=== PATIENT | male | born 1940 | race Caucasian/White ===

== ENCOUNTER 2016-12-16 07:44 | Observation (INO) | payer MEDICARE, BC ==
[2016-12-12 17:36] LABS: BASOPHILS 0.2 %; BASOPHILS ABSOLUTE 0.01 10/3/uL (0.0-0.16); EOSINOPHILS 1.7 %; EOSINOPHILS ABSOLUTE 0.11 10/3/uL (0.0-0.53); HEMATOCRIT 38.7 % (40.0-51.0); IMMATURE GRANULOCYTES 0.3 %; IMMATURE GRANULOCYTES ABSOLUTE 0.02 10/3/uL (0.0-0.11); LYMPHOCYTES 22.3 %; LYMPHOCYTES ABSOLUTE 1.41 10/3/uL (0.67-4.30); MANUAL DIFF NO %; MEAN CORPUS HGB CONC 33.6 g/dL (32.0-36.0); MEAN CORPUSCULAR HEMOGLOB 32.5 pg (26.0-34.0); MEAN CORPUSCULAR VOLUME 96.8 fL (80-100); MEAN PLATELET VOLUME 8.9 fL (9.2-13.0); MONOCYTES 10.1 %; MONOCYTES ABSOLUTE 0.64 10/3/uL (0.21-1.20); NEUTROPHILS 65.4 %; NEUTROPHILS ABSOLUTE 4.14 10/3/uL (2.02-8.40); PLATELET COUNT 295 10/3/uL (150-400); RBC DISTRIBUTION WIDTH 14.6 % (12.0-16.0); WHITE BLOOD CELLS 6.3 10/3/uL (4.5-10.5)
[2016-12-12 17:45] LABS: BUN (BLOOD UREA NITROGEN) 19 MG/DL (6-23); CALCIUM, SERUM 8.5 MG/DL (8.5-10.4); CHLORIDE, SERUM 109 MMOL/L (96-112); CO2 (CARBON DIOXIDE) 28 MMOL/L (24-34); CREATININE 1.05 MG/DL (0.70-1.30); GFR AFRICAN AMERICAN 81 ML/MIN (>=60); GFR NON AFRICAN AMERICAN 70 ML/MIN (>=60); GLUCOSE, SERUM 109 MG/DL (60-99)
[2016-12-12 17:46] LABS: SODIUM, SERUM 146 MMOL/L (135-148)
--- NOTE | ~2016-12-16 | OP ---
Record Of Operation [facility] [address] [place]. [address] NAME: PEE MA : 42 STATUS : ADM IN PAT#: [id number] AGE: 76 ADM/REG DATE : 12/16/16 MR#: [id number] REPORT SERV DATE: 12/16/16 DICTATED BY: Nell GUERRA DATE: 12/16/16 REPORT STATUS : Draft TRANSCRIBED BY: MODL DATE: 12/16/16 DATE OF PROCEDURE: 12/16/2016 PREOPERATIVE DIAGNOSIS: Benign prostatic hyperplasia with urinary retention. POSTOPERATIVE DIAGNOSIS: Benign prostatic hyperplasia with urinary retention. PROCEDURE: Cystoscopy, transurethral resection of the prostate. SURGEON: Nell Guerra M.D. ANESTHESIA: General. COMPLICATIONS: None. DRAINS: A 24-[place] three-way Maldonado catheter. BRIEF HISTORY: Mr. Ma is a 76-year-old white male with recent voiding dysfunction culminated in retention. He has had a catheter for about a week and after a reasonable workup, he decided proceed with TURP. The risks and benefits were as noted in his admission note. There were no unanswered questions. DESCRIPTION OF PROCEDURE: Under excellent general anesthesia, the patient was prepped and draped in a standard lithotomy position. It was noted that the patient has a subcoronal hypospadias with no evidence of stricture. Cystoscopy was performed with 30- and 70-degree lens, revealed normal anterior urethra. The posterior urethra showed trilobar BPH with a slightly elevated median bar. The orifices were lateral, but well back from the bladder neck at least in the midline. There was mild trabeculation throughout and a diverticulum on the right side about 15 mL in volume. No tumors were noted. I inserted the 28-[place] Storz resectoscope and began a circumferential resection, first resecting the left side and then the right side, and then the anterior tissue down to the apex. Orifices were noted to be normal and preserved as was the sphincter. There were no detected venous sinuses entered. Bleeding was well controlled, chips were removed with the Ellik evacuator, and I inserted a 24-[place] three-way Maldonado catheter with 40 mL of sterile water in the balloon. The patient will be taken to the recovery room and watched overnight for bleeding. I plan to send him home with his catheter until next week, although he has been fairly intolerant of his catheter previously in and may want a voiding trial sooner. I think it would be best, however, due to his thin bladder neck. BRUNO/ROBERTO Nell Guerra M.D. Record Of [address] [place] [address] NAME: PEE MA : 42 STATUS : ADM IN PAT#: [id number] AGE: 76 ADM/REG DATE : 12/16/16 MR#: [id number] REPORT SERV DATE: 12/16/16 DICTATED BY: Nell GUERRA DATE: 12/16/16 REPORT STATUS : Draft TRANSCRIBED BY: ROBERTO DATE: 12/16/16 / [id number] CC: Tiffanie Patton Dr.
--- NOTE | ~2016-12-16 | HP ---
History And Physical [id number] [place]. [address] NAME: PEE MA : 42 STATUS : ADM IN PAT#: [id number] AGE: 76 ADM/REG DATE : 12/16/16 MR#: [id number] REPORT SERV DATE: 12/16/16 DICTATED BY: Nell GUERRA DATE: 12/16/16 REPORT STATUS : Draft TRANSCRIBED BY: MODL DATE: 12/16/16 DATE OF ADMISSION: 12/16/2016 CHIEF COMPLAINT: Postop TURP. HISTORY OF PRESENT ILLNESS: Mr. Ma is a 76-year-old white male, seen recently for a voiding dysfunction, which culminated in acute urinary retention. He has had a catheter for about a week. His prostate measured 39 mL by ultrasound and lateral lobe obstruction. We discussed management options. He had previously been on alpha blockade and was anxious to proceed with operative intervention. We discussed the options of laser, TURP, and TUMT. We decided to proceed with TURP. The risks of bleeding, infection, anesthesia, injury to adjacent organs, impotency, retrograde ejaculation, etc., were all discussed. We also discussed the possibility of a neurogenic bladder and that he may not be able to void on his own. There were no unanswered questions. PAST MEDICAL HISTORY: BPH, urolithiasis, arthritis, fibromyalgia, skin cancer, and cardiac dysrhythmia. PAST SURGICAL HISTORY: Stone extraction, tonsillectomy, appendectomy, carpal tunnel repair, left total knee, and cataract extraction. HOME MEDICATIONS: Amiodarone, dabigatran, gabapentin, levothyroxine, Myrbetriq, Prilosec, Percocet, pravastatin, promethazine, tamsulosin, and zolpidem. ALLERGIES: PENICILLINS AND DOXYCYCLINE CAUSE RASHES AND CLARITHROMYCIN CAUSES SHORTNESS OF BREATH. FAMILY HISTORY: Positive for kidney stones. SOCIAL HISTORY: The patient denies use of alcohol or tobacco. He has stopped smoking 40 years ago. REVIEW OF SYSTEMS: Negative except as noted above. PHYSICAL EXAMINATION: GENERAL: A 76-year-old white male, alert and oriented x3. VITAL SIGNS: Afebrile with normal vital signs. No respiratory distress. CHEST: Clear. HEART: Regular rate and rhythm. ABDOMEN: Nontender, nondistended. Indwelling Maldonado catheter draining clear urine. No peripheral edema noted. PERTINENT LABORATORY: Creatinine 1.05. Hemoglobin 13.0. IMPRESSION: Benign prostatic hyperplasia with urinary retention status post transurethral History And Physical [address] [address] NAME: PEE MA : 44 STATUS : ADM IN PAT#: [id number] AGE: 76 ADM/REG DATE : 12/16/16 MR#: [id number] REPORT SERV DATE: 12/16/16 DICTATED BY: Nell GUERRA DATE: 12/16/16 REPORT STATUS : Draft TRANSCRIBED BY: ROBERTO DATE: 12/16/16 resection of the prostate. PLAN: 1. We will admit overnight for bleeding. 2. Plan discharge tomorrow likely with a catheter for several days to allow appropriate healing. BRUNO/ROBERTO Nell Guerra M.D. / [id number] CC: Nell Guerra M.D.
[~2016-12-16 07:44] MED LIST: AMB10 PO; ATV.5 PO; FLOMAX4 PO; GLUCCHONDR PO; LEVOTHROID25 MCG PO; MEPERITAB50 MG PO; MYRBETRIQ50 MG PO; NAP500 PO; NEUR300 PO; PACERONE200 MG PO; PERCOCET 10/3251 TAB PO; PR25 PO; PRADAXA150 MG PO; PRAVACHOL40 MG PO; PRILO PO
[2016-12-16 11:43] LABS: HEMATOCRIT 35.8 % (40.0-51.0); HEMOGLOBIN 12.5 g/dL (13.6-17.8)
[2016-12-16 11:56] LABS: CHLORIDE, SERUM 107 MMOL/L (96-112); CO2 (CARBON DIOXIDE) 28 MMOL/L (24-34); CREATININE 0.93 MG/DL (0.70-1.30); GFR AFRICAN AMERICAN 93 ML/MIN (>=60); GFR NON AFRICAN AMERICAN 81 ML/MIN (>=60); GLUCOSE, SERUM 91 MG/DL (60-99); POTASSIUM, SERUM 3.7 MMOL/L (3.5-5.3); SODIUM, SERUM 144 MMOL/L (135-148)
[2016-12-16 11:57] LABS: BUN (BLOOD UREA NITROGEN) 14 MG/DL (6-23)
[2016-12-17 07:20] LABS: HEMATOCRIT 36.3 % (40.0-51.0); HEMOGLOBIN 12.3 g/dL (13.6-17.8)
[2016-12-17 07:45] LABS: BUN (BLOOD UREA NITROGEN) 12 MG/DL (6-23); CALCIUM, SERUM 8.2 MG/DL (8.5-10.4); CHLORIDE, SERUM 107 MMOL/L (96-112); CO2 (CARBON DIOXIDE) 28 MMOL/L (24-34); CREATININE 1.17 MG/DL (0.70-1.30); GFR AFRICAN AMERICAN 71 ML/MIN (>=60); GFR NON AFRICAN AMERICAN 61 ML/MIN (>=60); GLUCOSE, SERUM 98 MG/DL (60-99); POTASSIUM, SERUM 4.6 MMOL/L (3.5-5.3); SODIUM, SERUM 142 MMOL/L (135-148)
[2016-12-17] MEDS ORDERED: MYRBETRIQ25 MG PO (08:50)
== END 2016-12-17 12:36 | disposition home or self-care (01) ==
LOC: SDC/OF 07:44 → PACU 11:21 → 4SO 12:31
PROC: 0VT08ZZ Resection of Prostate, Via Natural or Artificial Opening Endoscopic (ICD-10-PCS; principal; 2016-12-16 10:00)
DX: N41.0 Acute prostatitis (principal); N41.1 Chronic prostatitis; N40.1 Benign prostatic hyperplasia with lower urinary tract symptoms; R33.8 Other retention of urine; R39.12 Poor urinary stream; I48.91 Unspecified atrial fibrillation; E03.9 Hypothyroidism, unspecified; M19.90 Unspecified osteoarthritis, unspecified site; M79.7 Fibromyalgia; Z90.49 Acquired absence of other specified parts of digestive tract; Z98.890 Other specified postprocedural states; Z87.891 Personal history of nicotine dependence; Z87.442 Personal history of urinary calculi; Z79.899 Other long term (current) drug therapy; Z88.0 Allergy status to penicillin; Z88.1 Allergy status to other antibiotic agents; Z88.8 Allergy status to other drugs, medicaments and biological substances
CPT/HCPCS: 80048; 85014; 85018; 85025; 88305; 93005; 96374; A9270-GY; G0378; J1170; J2250; J2405; J2710; J3010